=== PATIENT | female | born 1970 | race Caucasian/White ===

== ENCOUNTER → 2016-03-16 | Outpatient (CLI) | payer BC, OTHER ==
--- NOTE | 2016-03-16 10:18 | MA ---
Screening Digital Mammogram With Tomosynthesis Clinical Indications: Routine screening. Technique: Standard digital cephalocaudal and tomosynthesis mediolateral oblique projections are obt ained. The digital images were processed by the [email or web address] computer aided detection system. Comparison: January 2015, December 2013, November 2012 and September 2009 Breast density: B; There are scattered fibroglandular densities. Findings: CAD was reviewed. No suspicious findings are identified. Impression: Negative mammogram. BI-RADS 1. Recommendation: Routine screening is recommended in one year. [facility] will send a result letter to the patient. Negative mammography should not preclude additional workup of a clinically suspicious finding. The patient's information is entered into a reminder system with a target due date for her next mammo gram.
== END ==
LOC: FIMAGING 09:56
DX: Z12.31 Encounter for screening mammogram for malignant neoplasm of breast (principal)
CPT/HCPCS: G0202

== ENCOUNTER 2016-12-25 15:05 | Emergency (ER) | payer OTHER ==
--- NOTE | 2016-12-25 15:29 | EDPHY ---
H & P Stated Complaint: CHAVES,lightheaded,transient numbness face>1wk;saw PCP;appt w/ neuro scheduled Time Seen by Provider: 12/25/16 15:28 HPI/ROS: CHIEF COMPLAINT: Headache with migratory paresthesias HISTORY OF PRESENT ILLNESS: The patient presents to the ED with a constant left -sided retro-orbital headache which has been present for the past 2 weeks. The patient has been having migratory bilateral paresthesias primarily in her face and also in her arms. The patient denies any acute weakness. The patient denies any history of fall or trauma. The patient denies any history of fever or neck stiffness. The patient is scheduled to see a neurologist in follow-up in 1 week. She reports a history of an MRI approximately 3 years ago which demonstrated nonspecific changes which were felt to be clinically insignificant by her prior neurologist. She has been using Imitrex for her symptoms. REVIEW OF SYSTEMS: A comprehensive 10 point review of systems is otherwise negative aside from elements mentioned in the history of present illness. Source: Patient - Personal History LMP (Females 10-55): 22-28 Days Ago Current Tetanus Diphtheria and Acellular Pertussis (TDAP): Yes Tetanus Vaccine Date: 2007 - Medical/Surgical History Hx Asthma: No Hx Chronic Respiratory Disease: No Hx Diabetes: No Hx Cardiac Disease: No Hx Renal Disease: No Hx Cirrhosis: No Hx Alcoholism: No Hx HIV/AIDS: No Hx Splenectomy or Spleen Trauma: No Other PMH: migraine. cervical stenosis - Social History Smoking Status: Never smoked - Physical Exam Exam: General Appearance: Alert, no distress Eyes: Pupils equal and round no pallor or injection ENT, Mouth: Mucous membranes moist Respiratory: There are no retractions, lungs are clear to auscultation Cardiovascular: Regular rate and rhythm Gastrointestinal: Abdomen is soft and nontender, no masses, bowel sounds normal Neurological: A&O, normal motor function, normal sensory exam, normal cranial nerves Skin: Warm and dry, no rashes Musculoskeletal: Neck is supple nontender Extremities: symmetrical, full range of motion Constitutional: Initial Vital Signs Temperature (C) 36.7 C 12/25/16 15:07 Heart Rate 88 12/25/16 15:07 Respiratory Rate 18 12/25/16 15:07 Blood Pressure 120/81 H 12/25/16 15:07 O2 Sat (%) 98 12/25/16 15:07 O2 Delivery Mode Room Air Allergies/Adverse Reactions: No Known Allergies Allergy (Verified 12/25/16 15:11) Home Medications: Medication Instructions Recorded Relpax 10/15/13 SUMAtriptan [Imitrex 25 MG (*)] 25 mg PO Q2H 12/25/16 Medical Decision Making - Diagnostics EKG Interpretation: EKG: Complete interpretation has been separately recorded in the [email or web address] archive. Summary impression: Sinus rhythm Imaging Results: Imaging Impressions Brain MRI 12/25/16 16:12 Impression: 1. Several nonspecific hyperintense T2/FLAIR signal abnormalities in the white matter of bilateral cerebral hemispheres. Differential diagnosis includes mild microvascular ischemic gliosis, migraine-related sequela, atypical demyelinating disease, or postinfectious/post inflammatory sequela. 2. No acute infarct, acute hemorrhage, hydrocephalus or mass effect. 3. No sinusitis. 4. No enhancing lesions or abnormal leptomeningeal enhancement. Findings and recommendations discussed with Emergency Department physician, Dr. Baljinder Geiger at 1735 hours on December 25, 2016. Final report concurs with initial preliminary interpretation. ED Course/Re-evaluation: The patient presents to the ED with complaints of an atypical left-sided headache for the past 10 days. The patient is noted to be neurologically intact. She has been having bilateral migratory paresthesias. Patient is noted to be afebrile. She has no meningeal symptoms. She does have a history of an MRI obtained in 2013 which demonstrated nonspecific rdz matter changes. Given the patient's acute complaints and history of migratory bilateral paresthesias a repeat MRI was performed which demonstrated no evidence of obvious demyelinating illness. The patient continues to have nonspecific rdz matter changes noted. The patient's laboratory studies are within normal limits. The patient did endorse some symptoms of vague lightheadedness. She is noted to have no evidence of an arrhythmia, anemia or metabolic abnormality noted on the workup today. Differential Diagnosis: Differential diagnosis considered includes multiple sclerosis, meningitis, migraine headache - Data Points Laboratory Results: Laboratory Results 12/25/16 16:00 12/25/16 16:00 12/25/16 12/25/16 12/25/16 16:00 16:00 15:57 WBC 6.50 10^3/uL 10^3/uL (3.80-9.50) RBC 4.58 10^6/uL 10^6/uL (4.18-5.33) Hgb 13.9 g/dL g/dL (12.6-16.3) POC Hgb 14.6 gm/dL gm/dL (12.6-16.3) Hct 40.1 % % (38.0-47.0) POC Hct 43 % % (38-47) MCV 87.6 fL fL (81.5-99.8) MCH 30.3 pg pg (27.9-34.1) MCHC 34.7 g/dL g/dL (32.4-36.7) RDW 12.1 % % (11.5-15.2) Plt Count 195 10^3/uL 10^3/uL (150-400) MPV 10.9 fL fL (8.7-11.7) Neut % (Auto) 61.8 % % (39.3-74.2) Lymph % (Auto) 29.5 % % (15.0-45.0) [place] % (Auto) 7.4 % % (4.5-13.0) Eos % (Auto) 0.6 % % (0.6-7.6) Baso % (Auto) 0.5 % % (0.3-1.7) Nucleat RBC Rel Count 0.0 % % (0.0-0.2) Absolute Neuts (auto) 4.02 10^3/uL 10^3/uL (1.70-6.50) Absolute Lymphs (auto) 1.92 10^3/uL 10^3/uL (1.00-3.00) Absolute Monos (auto) 0.48 10^3/uL 10^3/uL (0.30-0.80) Absolute Eos (auto) 0.04 10^3/uL 10^3/uL (0.03-0.40) Absolute Basos (auto) 0.03 10^3/uL 10^3/uL (0.02-0.10) Absolute Nucleated RBC 0.00 10^3/uL 10^3/uL (0-0.01) Immature Gran % 0.2 % % (0.0-1.1) Immature Gran # 0.01 10^3/uL 10^3/uL (0.00-0.10) POC Sodium 142 mEq/L mEq/L (134-144) Sodium 140 mEq/L mEq/L (134-144) POC Potassium 3.9 mEq/L mEq/L (3.3-5.0) Potassium 4.0 mEq/L mEq/L (3.5-5.2) POC Chloride 103 mEq/L mEq/L (97-110) Chloride 103 mEq/L mEq/L (97-110) Carbon Dioxide 25 mEq/l mEq/l (22-31) Anion Gap 12 mEq/L mEq/L (8-16) POC BUN 8 mg/dL mg/dL (7-23) BUN 9 mg/dL mg/dL (7-23) Creatinine 0.6 mg/dL mg/dL (0.6-1.0) POC Creatinine 0.6 mg/dL mg/dL (0.6-1.0) Estimated GFR > 60 Glucose 109 mg/dL H mg/dL (70-100) POC Glucose 115 mg/dL H mg/dL (70-100) Calcium 9.7 mg/dL mg/dL (8.5-10.4) Point of Care Test Results: 12/25/16 15:57 POC Sodium 142 POC Potassium 3.9 POC Chloride 103 POC BUN 8 POC Creatinine 0.6 POC Glucose 115 H Departure - Departure Disposition: Home, Routine, Self-Care Clinical Impression: Headache Condition: Good Instructions: Migraine Headache (ED) Additional Instructions: 1. Please follow up as scheduled with Dr. Peña. 2. You continue to have nonspecific changes noted under MRI. These are unlikely to be a cause of your headache. They may be the consequence of a chronic migraine syndrome. Please review this with your neurologist. Referrals: Dee Peña DO [Non Staff and Non MD] - As per Instructions
[2016-12-25 16:19] LABS: % IMMATURE GRANULYOCYTES 0.2 % (0.0-1.1); ABSOLUTE IMMATURE GRANULOCYTES 0.01 10^3/uL (0.00-0.10); ADD DIFF? NO; ADD MORPH? NO; ADD SCAN? NO; ATYPICAL LYMPHOCYTE FLAG 0 (0-99); FRAGMENT RBC FLAG 0 (0-99); HEMATOCRIT 40.1 % (38.0-47.0); HEMOGLOBIN 13.9 g/dL (12.6-16.3); LEFT SHIFT FLG 0 (0-99); LIPEMIA HEMOLYSIS FLAG 90 (0-99); MEAN CELL HEMOGLOBIN 30.3 pg (27.9-34.1); MEAN CELL HEMOGLOBIN CONCENTR. 34.7 g/dL (32.4-36.7); MEAN CELL VOLUME 87.6 fL (81.5-99.8); MEAN PLATELET VOLUME 10.9 fL (8.7-11.7); PLATELET CLUMPS FLAG 30 (0-99); PLATELET COUNT 195 10^3/uL (150-400); RED BLOOD CELL COUNT 4.58 10^6/uL (4.18-5.33); RED CELL DISTRIBUTION WIDTH 12.1 % (11.5-15.2)
[2016-12-25 16:30] LABS: ANION GAP 12 mEq/L (8-16); CALCIUM 9.7 mg/dL (8.5-10.4); CARBON DIOXIDE 25 mEq/l (22-31); CHLORIDE 103 mEq/L (97-110); CREATININE 0.6 mg/dL (0.6-1.0); GLOMERULAR FILTRATION RATE > 60; GLUCOSE 109 mg/dL (70-100); SODIUM 140 mEq/L (134-144)
--- NOTE | 2016-12-25 16:31 | CPEKG ---
Heart Rate: 74 RR Interval: 811 P-R Interval: 140 QRSD Interval: 84 QT Interval: 384 QTC Interval: 426 P Chandler: 64 QRS Chandler: 48 T Wave Chandler: 48 EKG Severity - NORMAL ECG - EKG Impression: SINUS RHYTHM Electronically Signed By: Baljinder Geiger 25-Dec-2016 17:09:02
[2016-12-25] MEDS ORDERED: GADOBUTROL 10 ML VIAL IVP ONE (16:57)
[2016-12-25] MEDS ORDERED: DEXAMETHASONE 10 MG/ML VIAL IVP ONE (18:19)
[2016-12-25] MEDS ORDERED: KETOROLAC 30 MG/1 ML SDV IVP ONE (18:19)
[2016-12-25] MEDS ORDERED: METOCLOPRAMIDE 10 MG/2 ML VIAL IVP ONE (18:19)
[2016-12-25 19:21] VITALS: BP 105/72; PULSE 60; RESP 16; TEMP 98.4; O2SAT 93
== END 2016-12-25 19:19 | disposition home or self-care (01) ==
DX: R51 Headache (principal)
CPT/HCPCS: 82947-QW; 96374; A9585; J1100; J1885; J2765

== ENCOUNTER 2016-12-28 12:06 | Emergency (ER) | payer OTHER ==
[2016-12-28] MEDS ORDERED: NS 1,000 ML IV ONE (14:30)
--- NOTE | 2016-12-28 14:33 | EDPHY ---
Addendum entered and electronically signed by Baljinder Geiger MD 12/28/16 18: 30: I re-evaluated the patient neurologically prior to discharge. She is noted to have 5/5 strength all 4 extremities, cranial nerves 2-12 are intact, she has no nuchal rigidity or meningeal symptoms. The patient has intact brisk 2+ reflexes. There are no fasciculations I currently appreciated. I did curbside Dr. Epperson from Neurology reviewing the patient's presentation today. For completeness sake he is recommended lumbar puncture to assess for inflammatory protein. I offered a lumbar puncture to the patient at 6:30 p.m.. She prefers to follow up with Neurology prior to obtaining this procedure. She understands that we have not completely evaluated her for the presence of a inflammatory [employer]GRAM LEAD[employer] process but clinically she has no evidence of meningitis and I doubt subarachnoid hemorrhages presentation today. The patient is comfortable returning to the emergency department this weekend for any weakness or worsening symptoms. Original Note: H & P Stated Complaint: mid back pain, bilat leg numbnesss, hands, and face x 2 weeks Source: Patient Exam Limitations: No limitations - Personal History LMP (Females 10-55): Unknown Tetanus Vaccine Date: 2007 - Medical/Surgical History Hx Asthma: No Hx Chronic Respiratory Disease: No Hx Diabetes: No Hx Cardiac Disease: No Hx Renal Disease: No Hx Cirrhosis: No Hx Alcoholism: No Hx HIV/AIDS: No Hx Splenectomy or Spleen Trauma: No Other PMH: migraine. cervical stenosis - Family History Significant Family History: No pertinent family hx - Social History Smoking Status: Never smoked Alcohol Use: Sober Drug Use: None Time Seen by Provider: 12/28/16 14:10 HPI/ROS: CHIEF COMPLAINT: Paresthesias, mid back pain HISTORY OF PRESENT ILLNESS: Patient is a 46-year-old female who presents to the emergency department complaining of lightheadedness as well as numbness in both legs and both arms and in her face for the last 3 weeks. She states that it tends to migrate and fluctuate. She also complains of imbalance especially when she tries to exert herself. She has an appointment with neurologist Dr. Peña in 1 week on Sunday. She was seen here 3 days ago in the ER and had normal workup and an MRI of her brain that was unremarkable. She states that since that time in the last day she has developed pain in her midback around T 10 as well as cramping in her legs and a feeling of coldness on the inner thighs. She keeps thinking that her thighs are wet when she reaches down there dry. She has not had any incontinence but does state that she feels the need to urinate frequently. No dysuria. She did receive a flu and tetanus vaccine about 4 weeks ago. No trauma. No fever. No IV drug abuse or immuno compromising conditions. REVIEW OF SYSTEMS: Constitutional: denies: chills, fever, recent illness, recent injury EENTM: denies: blurred vision, double vision, nose congestion Respiratory: denies: cough, shortness of breath Cardiac: denies: chest pain, irregular heart rate, lightheadedness, palpitations Gastrointestinal/Abdominal: denies: abdominal pain, diarrhea, nausea, vomiting, blood streaked stools Genitourinary: denies: dysuria, frequency, hematuria, pain Musculoskeletal: See HPI Skin: denies: lesions, rash, jaundice, bruising Neurological: See HPI Hematologic/Lymphatic: denies: blood clots, easy bleeding, easy bruising Immunologic/allergic: denies: HIV/AIDS, transplant EXAM: GENERAL: Well-appearing, well-nourished and in no acute distress. HEAD: Atraumatic, normocephalic. EYES: Pupils equal round and reactive to light, extraocular movements intact, sclera anicteric, conjunctiva are normal. ENT: TMs normal, nares patent, oropharynx clear without exudates. Moist mucous membranes. NECK: Normal range of motion, supple without lymphadenopathy or JVD. LUNGS: Breath sounds clear to auscultation bilaterally and equal. No wheezes rales or rhonchi. HEART: Regular rate and rhythm without murmurs, rubs or gallops. ABDOMEN: Soft, nontender, normoactive bowel sounds. No guarding, no rebound. No masses appreciated. BACK: No CVA tenderness, no spinal tenderness, step-offs or deformities EXTREMITIES: Normal range of motion, no pitting or edema. No clubbing or cyanosis. NEUROLOGICAL: NIH stroke score is 0, Cranial nerves II through XII grossly intact. Normal speech, normal gait. 5/5 strength, normal movement in all extremities, normal sensation, normal cerebellar exam, normal strength, normal reflexes PSYCH: Normal mood, normal affect. SKIN: Warm, dry, normal turgor, no visible rashes or lesions. (Colby Jeffrey) Constitutional: Initial Vital Signs Temperature (C) 37.0 C 12/28/16 12:15 Heart Rate 91 12/28/16 12:15 Respiratory Rate 16 12/28/16 12:15 Blood Pressure 129/77 H 12/28/16 12:15 O2 Sat (%) 98 12/28/16 12:15 O2 Delivery Mode Room Air Allergies/Adverse Reactions: No Known Allergies Allergy (Verified 12/25/16 15:11) Home Medications: Medication Instructions Recorded Diclofenac Sodium [Voltaren 75 MG 75 mg PO BID #14 tab 12/28/16 (*)] LORazepam [Ativan] 1 mg PO BID PRN #10 tab 12/28/16 Vicodin 5-300 mg Tablet 12/28/16 Medical Decision Making ED Course/Re-evaluation: I assumed care of the patient at 3:00 p.m. pending MRI studies. 5:40 p.m.: Patient is MRIs demonstrate no evidence of transverse myelitis, demyelinating illness or other explanation of her sensory symptoms. The patient will be discharged home per Dr. Jeffrey's plan and follow-up with her neurologist next week as scheduled. (Baljinder Geiger) 2:55 p.m. I have ordered an MRI of the patient's spine and discussed this with Radiology. I have some concern for rule out Guillain-[place] versus thoracic cord abnormality. I will transfer the patient's care to Dr. Baljinder Geiger at shift change. (Colby Jeffrey) Differential Diagnosis: Partial list of the Differential diagnosis considered include but were not limited to; anxiety, Guillain-[place], transverse myelitis, and although unlikely based on the history and physical exam, I also considered abscess, tumor CVA, electrolyte abnormality. (Colby Jeffrey) - Data Points Laboratory Results: Laboratory Results 12/28/16 15:00 12/28/16 15:00 Medications Given: Discontinued Medications Sodium Chloride (Ns) 1,000 mls @ 0 mls/hr IV ONCE ONE; Wide Open PRN Reason: Protocol Stop: 12/28/16 14:31 Last Admin: 12/28/16 15:05 Dose: 1,000 mls Lorazepam (Ativan Injection) 1 mg IVP EDNOW ONE Stop: 12/28/16 15:03 Last Admin: 12/28/16 15:04 Dose: 1 mg Departure - Departure Disposition: Home, Routine, Self-Care Clinical Impression: Paresthesia Condition: Good Instructions: Paresthesia (ED) Additional Instructions: 1. Follow up with Dr. Peña from Neurology as scheduled. 2. Please return to the ED for markedly worsening symptoms or other concerns. 3. Your MRI demonstrates no acute abnormalities which would explain her symptoms today. Referrals: Dee Peña DO [Non Staff and Non MD] - As per Instructions Prescriptions: Diclofenac Sodium [Voltaren 75 MG (*)] 75 mg PO BID #14 tab LORazepam [Ativan] 1 mg PO BID PRN #10 tab PRN Reason: for anxiety
[2016-12-28] MEDS ORDERED: LORazepam 2 MG/ML INJ IVP ONE (15:02)
[2016-12-28 15:07] LABS: % IMMATURE GRANULYOCYTES 0.2 % (0.0-1.1); ABSOLUTE IMMATURE GRANULOCYTES 0.01 10^3/uL (0.00-0.10); ADD DIFF? NO; ADD MORPH? NO; ADD SCAN? NO; ATYPICAL LYMPHOCYTE FLAG 0 (0-99); FRAGMENT RBC FLAG 0 (0-99); HEMOGLOBIN 15.7 g/dL (12.6-16.3); LEFT SHIFT FLG 0 (0-99); LIPEMIA HEMOLYSIS FLAG 90 (0-99); MEAN CELL HEMOGLOBIN CONCENTR. 34.9 g/dL (32.4-36.7); MEAN CELL VOLUME 88.8 fL (81.5-99.8); MEAN PLATELET VOLUME 10.1 fL (8.7-11.7); PLATELET CLUMPS FLAG 0 (0-99); PLATELET COUNT 227 10^3/uL (150-400); RED BLOOD CELL COUNT 5.07 10^6/uL (4.18-5.33); RED CELL DISTRIBUTION WIDTH 12.3 % (11.5-15.2)
[2016-12-28 15:25] LABS: ANION GAP 14 mEq/L (8-16); CALCIUM 10.2 mg/dL (8.5-10.4); CARBON DIOXIDE 26 mEq/l (22-31); CHLORIDE 101 mEq/L (97-110); CREATININE 0.7 mg/dL (0.6-1.0); GLOMERULAR FILTRATION RATE > 60; GLUCOSE 93 mg/dL (70-100); POTASSIUM 3.6 mEq/L (3.5-5.2); SODIUM 141 mEq/L (134-144)
[2016-12-28] MEDS ORDERED: GADOBUTROL 10 ML VIAL IVP ONE (15:27)
[2016-12-28 18:43] VITALS: BP 126/89; PULSE 76; RESP 18; TEMP 98.8; O2SAT 96
== END 2016-12-28 18:43 | disposition home or self-care (01) ==
DX: R20.2 Paresthesia of skin (principal); E86.9 Volume depletion, unspecified
CPT/HCPCS: 96374; A9585; J2060

== ENCOUNTER → 2017-07-06 | Outpatient (CLI) | payer OTHER | LOC: FIMAGING 09:50 | PROVIDERS: ATTEND Obstetrics & Gynecology | DX: Z12.31 Encounter for screening mammogram for malignant neoplasm of breast (principal) ==